=== PATIENT | male | born 1960 | race Caucasian/White ===

== ENCOUNTER 2017-01-26 06:29 | Day surgery (SDC) | payer OTHER ==
[2017-01-26] VITALS (11 sets, daily range): BP systolic 144–183; BP diastolic 85–852; PULSE 70–85; TEMP 98.1
[~2017-01-26] VITALS: Ht 175.4 cm; Wt 124.4 kg
[~2017-01-26 06:29] MED LIST: ADVIL200 MG PO; ASPIRIN E.C. 8181 MG PO; COLACE 100100 MG/CAP PO; DIOVAN/HCT 12.51 TA1 PO; JANUMET 1000 MG1 TA1 PO; NORCO 325 MG-51 TAB PO; PLAVIX 75MG TAB75 MG PO; PYRIDIUM200 M1 PO; ZYRTEC-D 5 MG-11 TER PO
[2017-01-26 06:59] LABS: HEMATOCRIT 41.1 % (42.0-52.0); HEMOGLOBIN 13.5 g/dl (13.5-18.0); MEAN CELL VOLUME 84 fl (80.0-100.0); MEAN CORPUSCULAR HEMOGLOBIN 28 pg (27.0-31.0); MEAN CORPUSCULAR HGB CONC 33 g/dl (33.0-37.0); MEAN PLATELET VOLUME 10.8 fl (7.4-10.4); PLATELET COUNT 220 K/mm3 (130-400); RED BLOOD COUNT 4.88 M/mm3 (4.20-5.60); REDCELL DISTRIBUTION WIDTH-CV 13.1 % (11.5-14.5); WHITE BLOOD COUNT 8.3 K/mm3 (4.8-10.8)
[2017-01-26 07:03] LABS: CALCIUM 9.1 mg/dL (8.4-10.2); CREATININE, serum 0.93 mg/dL (0.66-1.25)
[2017-01-26 07:08] LABS: PROTHROMBIN TIME 10.7 SECONDS (9.7-12.8)
[2017-01-26] MEDS ORDERED: PRINIVIL20 MG PO (07:31)
[2017-01-26] MEDS ORDERED: GLUCOPHAGE1000 MG PO (07:32)
[2017-01-26] MEDS ORDERED: LANTUS SOLOS100 U/ML SQ (07:33)
[2017-01-26] MEDS ORDERED: NOVOLOG FLEX100 U/ML SQ ×2 (07:33→07:34)
[2017-01-26] MEDS ORDERED: CRESTOR20 MG PO (07:33)
[2017-01-26] MEDS ORDERED: TOPROL XL 25MG25 MG (11:49)
[2017-01-26] MEDS ORDERED: NEXIUM 40MG40 MG PO (11:50)
== END 2017-01-26 14:48 | disposition home or self-care (01) ==
LOC: COL.CAR 06:29
PROVIDERS: Internal Medicine Cardiovascular Disease
DX: I25.110 Atherosclerotic heart disease of native coronary artery with unstable angina pectoris (principal); R94.39 Abnormal result of other cardiovascular function study; I10 Essential (primary) hypertension; E11.9 Type 2 diabetes mellitus without complications; E78.5 Hyperlipidemia, unspecified; G47.30 Sleep apnea, unspecified
CPT/HCPCS: C1760; J2250; J3010; Q9967

== ENCOUNTER → 2017-06-21 | Outpatient (CLI) | payer OTHER ==
[~2017-06-21] MED LIST changes: +CRESTOR20 MG PO; +GLUCOPHAGE1000 MG PO; +LANTUS SOLOS100 U/ML SQ; +NEXIUM 40MG40 MG PO; +NOVOLOG FLEX100 U/ML SQ; +PRINIVIL20 MG PO; +TOPROL XL 25MG25 MG
== END ==
LOC: SUN.DIA 08:40
DX: E11.22 Type 2 diabetes mellitus with diabetic chronic kidney disease (principal); E11.65 Type 2 diabetes mellitus with hyperglycemia; I12.9 Hypertensive chronic kidney disease with stage 1 through stage 4 chronic kidney disease, or unspecified chronic kidney disease; N18.9 Chronic kidney disease, unspecified; E11.40 Type 2 diabetes mellitus with diabetic neuropathy, unspecified; E78.5 Hyperlipidemia, unspecified; Z79.4 Long term (current) use of insulin; Z79.84 Long term (current) use of oral hypoglycemic drugs; E66.9 Obesity, unspecified; Z68.41 Body mass index [BMI] 40.0-44.9, adult; Z71.3 Dietary counseling and surveillance
CPT/HCPCS: G0108

== ENCOUNTER → 2017-08-03 | Outpatient (CLI) | payer OTHER | LOC: SUN.DIA 07-13 12:34 | DX: E11.21 Type 2 diabetes mellitus with diabetic nephropathy (principal); E11.22 Type 2 diabetes mellitus with diabetic chronic kidney disease; E11.40 Type 2 diabetes mellitus with diabetic neuropathy, unspecified; N18.9 Chronic kidney disease, unspecified; Z79.4 Long term (current) use of insulin; E78.5 Hyperlipidemia, unspecified; I10 Essential (primary) hypertension; E66.9 Obesity, unspecified; Z68.41 Body mass index [BMI] 40.0-44.9, adult; Z71.3 Dietary counseling and surveillance; Z87.891 Personal history of nicotine dependence | CPT/HCPCS: G0108 ==

== ENCOUNTER 2020-04-14 08:25 | Outpatient (RCR) | payer OTHER | END 2020-07-03 | disposition home or self-care (01) | LOC: WSOH | DX: S60.222A Contusion of left hand, initial encounter (principal); I10 Essential (primary) hypertension; E11.9 Type 2 diabetes mellitus without complications; Y99.0 Civilian activity done for income or pay ==

== ENCOUNTER 2020-10-23 09:51 | Outpatient (RCR) | payer OTHER | END 2020-10-27 | disposition home or self-care (01) | LOC: WSOT | DX: S60.222D Contusion of left hand, subsequent encounter (principal); M65.4 Radial styloid tenosynovitis [de Quervain]; I10 Essential (primary) hypertension | CPT/HCPCS: 24091; A6549 ==

== ENCOUNTER → 2021-01-26 | Outpatient (CLI) | payer OTHER | LOC: COL.LAB 10:17 | DX: Z01.812 Encounter for preprocedural laboratory examination (principal); G56.02 Carpal tunnel syndrome, left upper limb; Z20.822 Contact with and (suspected) exposure to COVID-19 ==

== ENCOUNTER 2023-02-28 07:01 | Day surgery (SDC) | payer OTHER ==
[~2023-02-28] VITALS: Ht 175.3 cm; Wt 112.3 kg
[2023-02-28] VITALS (20 sets, daily range): BP systolic 112–143; BP diastolic 64–659; PULSE 68–81; TEMP 97.8–98.8
[~2023-02-28 07:01] MED LIST changes: -TOPROL XL 25MG25 MG; +TOPROL XL 25MG25 MG PO
[2023-02-28] MEDS ORDERED: TESSALON PERLE200 MG PO (07:22)
[2023-02-28] MEDS ORDERED: NITROSTAT0.4 MG/TAB SL (07:23)
[2023-02-28] MEDS ORDERED: BASAGLAR K100 UNIT/1 SQ ×2 (07:23→12:21)
[2023-02-28] MEDS ORDERED: JARDIANCE10 PO (07:24)
[2023-02-28] MEDS ORDERED: SINGULAIR 110 MG/TAB PO (07:25)
[2023-02-28] MEDS ORDERED: PROTONIX 40MG T40 MG PO (07:25)
[2023-02-28] MEDS ORDERED: OZEMPIC0.25 MG/0. SQ (07:26)
[2023-02-28 07:45] LABS: HEMATOCRIT 38.2 % (42.0-52.0); HEMOGLOBIN 11.5 g/dl (13.5-18.0); MEAN CELL VOLUME 86 fl (80.0-100.0); MEAN CORPUSCULAR HEMOGLOBIN 26 pg (27-31); MEAN CORPUSCULAR HGB CONC 30 g/dl (33.0-37.0); MEAN PLATELET VOLUME 10.7 fl (7.4-10.4); PLATELET COUNT 209 K/mm3 (130-400); RED BLOOD COUNT 4.45 M/mm3 (4.20-5.60); REDCELL DISTRIBUTION WIDTH-CV 15.2 % (11.5-14.5)
[2023-02-28 07:52] LABS: PROTHROMBIN TIME 11.2 SECONDS (9.7-12.8)
[2023-02-28 07:54] LABS: PARTIAL THROMBOPLASTIN TIME 32.2 SECONDS (26.0-37.0)
[2023-02-28 08:00] LABS: CREATININE, serum 2.17 mg/dL (0.72-1.25); POTASSIUM 4.1 mmol/L (3.5-4.5)
[2023-02-28] MEDS ORDERED: TEMOVATE0.05% TP (08:02)
[2023-02-28] MEDS ORDERED: VOLTAREN GEL 1%1 TU TP (08:03)
[2023-02-28] MEDS ORDERED: CYMBALTA 60MG60 MG PO (08:04)
[2023-02-28] MEDS ORDERED: FERROUS GL325 MG/TAB PO (08:04)
[2023-02-28] MEDS ORDERED: FLONASEALLERGY NS (08:05)
[2023-02-28] MEDS ORDERED: NEURONTIN600 MG/TAB PO (08:08)
--- NOTE | 2023-02-28 09:26 | NUR ---
PLEASE SEE MERGE DOCUMENTATION FOR RECORD OF INTERVENTIONS, VITALS AND MEDICATIONS ADMINISTERED DURING THE PROCEDURE.
[2023-02-28] MEDS ORDERED: FERROUS GL325 MG/TAB (12:18)
[2023-02-28] MEDS ORDERED: JARDIANCE10 (12:19)
--- NOTE | 2023-02-28 15:46 | NUR ---
PT ARRIVED TO ROOM [id number] FROM AUTOMATIC DRILL OPERATOR. PT IS A&O X4, NO COMPLAINTS OF PAIN. PT ON ROOM AIR. PT ON TELE NSR. COMPRESSION BAND TO RIGHT WRIST WITH 13ML AIR FOR COMPRESSION. POST OP VITALS OBTAINED AND CHARTED. AT THE BEDSIDE. 1/2 NS RUNNING AT 150ML/HR. ASSISTED PT WITH THE URINAL HAD 400 ML OUTPUT.
--- NOTE | 2023-02-28 15:58 | NUR ---
1345 COMPRESSION BAND TO R WRIST ASSESSED, NO BLEEDING NOTED. 3ML AIR REMOVED. 1413 COMPRESSION BAND TO R WRIST REASSESSED, NO BLEEDING NOTED. 10ML AIR REMOVED AND GAUZE APPLIED TO SITE. NO BLEEDING NOTED.
[2023-03-01 00:10] VITALS: BP_SYST 142
--- NOTE | 2023-03-01 00:45 | NUR ---
PT ASSESSED AT 2134, PAIN RELATED TO LT ROATATOR CUFF TARE THAT PT IS GETTING TREATED OUTPATIENT. PT RT RADIAL SITE CLEAN WITH PULSE PRESENT AND NO DRAINAGE. OTHERWISE VSS, RESTING COMFORTABLY IN BED WITH CALL LIGHT WITHIN REACH
[2023-03-01 03:16] VITALS: BP 158/83; PULSE 76; TEMP 98.3
[2023-03-01 03:34] LABS: BASO # 0.1 K/mm3 (0.0-0.2); BASO % 0.7 % (0.0-2.0); EOS # 0.3 K/mm3 (0.0-0.7); EOS % 3.3 % (0.0-4.0); GRAN # 5.7 K/mm3 (1.4-6.5); GRAN % 67.7 % (42.2-75.2); HEMOGLOBIN 11.5 g/dl (13.5-18.0); LYMPH # 1.7 K/mm3 (1.2-3.4); LYMPH % 20.4 % (20.0-51.0); MEAN CORPUSCULAR HEMOGLOBIN 26 pg (27-31); MEAN CORPUSCULAR HGB CONC 32 g/dl (33.0-37.0); MEAN PLATELET VOLUME 10.7 fl (7.4-10.4); MONO # 0.7 K/mm3 (0.1-0.6); MONO % 7.8 % (1.7-9.3); PLATELET COUNT 195 K/mm3 (130-400); RED BLOOD COUNT 4.41 M/mm3 (4.20-5.60)
[2023-03-01 03:38] LABS: HEMATOCRIT 35.9 % (42.0-52.0); MEAN CELL VOLUME 81 fl (80.0-100.0)
[2023-03-01 03:53] LABS: CALCIUM 9.2 mg/dL (8.4-10.2); CREATININE, serum 1.5 mg/dL (0.72-1.25); POTASSIUM 4.1 mmol/L (3.5-4.5)
[2023-03-01 05:25] VITALS: BP_SYST 158
[2023-03-01 07:35] VITALS: BP 139/80; PULSE 98; TEMP 97.9
--- NOTE | 2023-03-01 08:00 | NUR ---
PATIENT AWAKE AND ALERT,RESTING IN BED. AT BEDSIDE. PATIENT DENIES ANY NEEDS OR COMPLAINTS AT THIS TIME. RADIAL CATH SITE INTACT. CALL LIGHT WITHIN REACH.
--- NOTE | 2023-03-01 09:19 | NUR ---
Discussed when to contact the physician for signs of symptoms of complications or VA. Also reviewed risk factors for heart disease. Covered applicable modifiable risk factors including the following: tobacco cessation, HTN, hyperlipidemia, diabetes, overweight/obesity, sedentary lifestyle, and stress/depression. Patient verbalized understanding. Referral sent to [facility] with patient's permission. Staff will call next 1-2 buisness days to schedule.
[2023-03-01] MEDS ORDERED: BRILINTA90 MG PO (10:28)
[2023-03-01] MEDS ORDERED: ZESTRIL40 MG PO (10:29)
--- NOTE | 2023-03-01 10:46 | NUR ---
Initial visit; Patient thanked Extracting Machine Operator for stopping and states he is doing well. His is present and by his side.
--- NOTE | 2023-03-01 11:00 | NUR ---
PATIENT GIVEN DISCHARGE INSTRUCTIONS AND EDUCAAITON. ALL QUESTIONS ANSWERED, STENT CARD GIVEN, NEW MEDS REVIEWED. IV AND TELE REMOVED. PATIENT TAKEN TO PATIENT ENTRANCE WHERE HE LEFT IN STABLE CONDITION IN THE CARE OF HIS .
--- NOTE | 2023-03-02 10:25 | NUR ---
Plumbing Engineering Draftsperson attempted to contact Patient via phone number on file to follow-up on recent hospital stay. SW left a voicemail with callback information.
== END 2023-03-01 11:00 | disposition home or self-care (01) ==
LOC: COL.CAR 07:01 → MEDICAL 14:13 → COL.CAR 03-01 11:00
PROVIDERS: Internal Medicine Cardiovascular Disease
DX: I25.118 Atherosclerotic heart disease of native coronary artery with other forms of angina pectoris (principal); E66.9 Obesity, unspecified; Z68.36 Body mass index [BMI] 36.0-36.9, adult; E11.22 Type 2 diabetes mellitus with diabetic chronic kidney disease; I12.9 Hypertensive chronic kidney disease with stage 1 through stage 4 chronic kidney disease, or unspecified chronic kidney disease; N18.31 Chronic kidney disease, stage 3a; E78.5 Hyperlipidemia, unspecified; Z79.82 Long term (current) use of aspirin; Z79.899 Other long term (current) drug therapy; Z79.84 Long term (current) use of oral hypoglycemic drugs
CPT/HCPCS: OP; A9270; C1725; C1769; C1874; C1887; C9601; J0583; J1644; J1815; J2250; J3010; J7040; Q9967